=== PATIENT | female | born 1965 | race Caucasian/White ===

== ENCOUNTER 2016-09-19 13:43 | Emergency (ER) ==
[2016-09-19 14:15] LABS: URINE SOURCE CLEAN CATCH
[2016-09-19 14:55] LABS: BILIRUBIN URINE NEGATIVE (NEGATIVE); BLOOD URINE TRACE (NEGATIVE); CLARITY SL. CLOUDY (CLEAR); COLOR YELLOW; GLUCOSE URINE NEGATIVE (NEGATIVE); LEUKOCYTES URINE 2+ (NEGATIVE); NITRITE URINE NEGATIVE (NEGATIVE); PH URINE 6.5; PROTEIN URINE NEGATIVE (NEGATIVE); SP GRAVITY URINE 1.005; UROBILINOGEN URINE NORMAL
[2016-09-19 14:56] LABS: URINE CULTURE PL NEEDED? YES; URINE EPITHELIAL CELLS <10 /HPF (<10); URINE RBC <10 /HPF (<10)
[2016-09-19] MEDS ORDERED: NORFLEX IM ONE (15:49)
[2016-09-19] MEDS ORDERED: TORADOL IM ONE (15:49)
[2016-09-19] MEDS ORDERED: DILAUDID IM ONE (15:50)
--- NOTE | 2016-09-19 15:52 | PROVIDER DOCUMENTATION ---
HPI-Musculoskeletal Pain/Inj - GENERAL Chief Complaint: Back Pain Stated Complaint: FLANK PAIN Time Seen by Provider: 09/19/16 15:43 - HX OF PRESENT ILLNESS-MUSKULOSKELTAL Nature of Presenting Problem: 51 year old WF presents with low back pain for 10 days, onset after she was almost pulled to the ground by her dog. pt reports she twisted and has had the pain ever since. denies fall. pain has been getting worse since that time. pain radiates down both legs, numbness/ tingling to entire legs and feet since onset 10 days ago. pt has taken ibuprofen, flexeril with out relief. pt does not have a history of chronic back pain. Quality of Pain: reports: sharp, stabbing Severity in ED: moderate Onset/Duration: other (10 days ago) Timing: still present, constant, getting worse Modifying Factors: improves with: movement, palpation Any recent injury?: Yes Locality of Occurance: Home Similar Symptoms Previously?: No Recently seen or treated by another doctor?: No - BACK & NECK PAIN/INJURY Back/Neck Pain Location: reports: lumbar spine Back/Neck Pain Radiation: reports: Lower Legs, Feet. denies: headache, shoulders, arm(s), Buttocks, Upper Legs Context / Method of Injury: reports: twisted Associated Symptoms: reports: lower back pain, numbness in legs/feet, numbness in upper ext, tingling in legs/feet, tingling in upper ext, weakness in legs/ feet. denies: loss of bladder control, loss of bowel control, fever, muscle spasms, sensory/motor loss, weakness in upper ext Review of Systems - Adult - REVIEW OF SYSTEMS - ADULT Constitutional: reports: no symptoms reported. denies: chills, fever, fatique Eyes: reports: no symptoms reported. denies: discharge, blurred vision, double vision Ears, Nose, Mouth & Throat: reports: no symptoms reported. denies: ear discharge, ear pain, nose pain, loose teeth, throat pain, throat swelling Cardiovascular: reports: no symptoms reported. denies: chest pain, palpitations , syncope Respiratory: reports: no symptoms reported. denies: chronic cough, cough, shortness of breath, wheezing Gastrointestinal: reports: no symptoms reported. denies: abdominal pain, diarrhea, nausea, vomiting Genitourinary: reports: no symptoms reported. denies: dysuria, hematuria, urgency Musculoskeletal: reports: see HPI, back pain. denies: bone pain, joint pain, joint swelling, neck pain Integumentary: reports: no symptoms reported. denies: hives, itching Neurological: reports: see HPI, numbness (tingling to bilateral lower extremities). denies: ataxia, dizziness/vertigo, headache/migraines, loss of balance, paresthesia, seizure, slurred speech, syncope, tremors Psychiatric: reports: no symptoms reported Endocrine: reports: no symptoms reported Hematologic/Lymphatic: reports: no symptoms reported Allergic/Immunologic: reports: no symptoms reported All Other Systems: Reviewed and Negative Past History - Adult - PAST MEDICAL HISTORY-ADULT Review of Records: reports: Old Records Reviewed, Nursing Assessment Review, Medications Reviewed, Social history reviewed & non-contributory. Major Childhood Illnesses: reports: denies history Cardiovascular: reports: denies history Respiratory: reports: denies history Gastrointestinal: reports: GERD Obstetrical/Gynecological: reports: denies history Genitourinary: reports: denies history Musculoskeletal: reports: other (DJD) Neurological: reports: denies history Psychiatric: reports: depression Endocrine/Immune: reports: denies history Other Conditions: reports: denies history - PRIOR SURGERIES/PROCEDURES Surgical/Procedure History: reports: recent surgery - IMMUNIZATION STATUS Childhood Immunizations: UTD Flu Vaccine: UTD - FAMILY HISTORY Family History: reviewed, not pertinent - SOCIAL HISTORY Smoking: denies, non-smoker Substance Use: none/never Alcohol Use Frequency: never Physical Exam-Injury Related - Physical Exam-Injury Related Initial Vital Signs Reviewed: Yes General Appearance: appears well, alert, mild distress, moderate distress. negative: no apparent distress, severe distress, lethargic, slow to respond, obtunded, combative Eyes: pink conjunctivae Head, Ears, Nose, Mouth & Throat: normocephalic/atraumatic, moist mucous membranes, normal ENT inspection Neck: non-tender, full range of motion, supple, normal inspection. negative: C- spine tenderness, decresed ROM, limited range of motion, pain on movement, vertebral point tenderness Respiratory: chest non-tender, lungs clear, normal breath sounds, no pleuratic chest pain, no respiratory distress, no accessory muscle use Cardiovascular: normal peripheral pulses, regular rate, rhythm Peripheral Pulses: radial (R): 3+, radial (L): 3+, dorsalis-pedis (R): 3+, dorsalis-pedis (L): 3+ Abdominal Exam: normal bowel sounds, non tender, soft Female Genitalia/Pelvic Exam: deferred Rectal Exam: deferred Hemoccult Exam: deferred Lymphatic: no adenopathy Back Exam: normal inspection, no CVA tenderness, decreased range of motion, muscle spasm, vertebral tenderness (diffuse lumbar tenderness). negative: CVA tenderness, ecchymosis, kyphosis, lordosis, scoliosis, swelling Extremity: normal range of motion, non-tender, normal gait, normal inspection, no pedal edema, no calf tenderness, normal capillary refill Integumentary: normal color, warm/dry Neurologic: grossly normal, no motor/sensory deficits. negative: focal weakness , motor weakness, sensory deficit - Glascow Coma Score Best Eye Response ([place]): (4) open spontaneously Best Verbal Response ([place]): (5) oriented Best Motor Response ([place]): (6) obeys commands Jorge Luis Total: 15 Progress - PLAN OF CARE/RESULTS Progress/Plan/Lab Results: Laboratory Tests 09/19/16 14:00 Urine Source CLEAN CATCH Urine Color YELLOW Urine Clarity SL. CLOUDY A Urine pH 6.5 Ur Specific [place] 1.005 Urine Protein NEGATIVE Urine Ketones NEGATIVE Urine Blood TRACE Urine Nitrite NEGATIVE Urine Bilirubin NEGATIVE Urine Urobilinogen NORMAL Urine Microscopic RBC <10 Urine WBC 2+ A Urine Microscopic WBC 10-20 A Ur Epithelial Cells <10 Urine Bacteria 2+ Urine Glucose NEGATIVE Vital Signs - 24 hr 09/19/16 09/19/16 13:54 15:52 Temperature 97.9 F Pulse Rate 82 79 Respiratory 16 18 Rate Blood Pressure 128/76 131/81 O2 Sat by Pulse 99 96 Oximetry Reviewed radiology with Dr. Montiel, aggrees with plan of care and treatment. - CT/MRI 1 CT Study: Lumbar Spine Impression: Abnormal (small bulging disks, no fracture, spinal stenosis or disk herniation. per Dr. Wise) Departure - Departure Time of Disposition Order: 18:35 DIAGNOSIS: Low back pain Qualifiers: Chronicity: acute Back pain laterality: midline Sciatica presence: unspecified whether sciatica present Qualified Code(s): M54.5 - Low back pain Disposition: HOME 01 Certified Medical Emergency: Emergent Condition: Stable Additional Instructions: Follow up with your primary care doctor for a referral to MRI. ED Follow Up Instructions: You have been treated by a care provider in the Emergency Department. These instructions are being provided to you so you can have an understanding of how to care for yourself upon discharge. Upon discharge from the Emergency Department, you are responsible for making arrangements for follow-up care by a physician of your choice. Take all prescribed medications as directed. Return to the Emergency Department immediately for any new or worsening symptoms. You may call the Physician Referral phone number at [phone] to obtain a list of Physicians who are taking new patients. Prescriptions: Hydrocodone/APAP 7.5 mg/325 mg [[place]-7.5] 1 each PO Q6H PRN PRN #7 tablet PRN Reason: Pain Orphenadrine [Norflex] 100 mg PO BID #10 tablet Famotidine [Pepcid] 20 mg PO DAILY #20 tablet Ketorolac [Toradol] 10 mg PO Q6H PRN PRN #10 tablet PRN Reason: back pain Referrals: None,PCP [Primary Care Provider] - Forms: Return to School/Parent Work Instructions: Acetaminophen; Hydrocodone tablets or capsules, Famotidine tablets or gelcaps, Back Pain, Adult, Ketorolac tablets, Orphenadrine tablets Attestation - Physician/ LLOYD Attestation Patient care was provided by Advanced Practice Provider:: Yes Advanced Practice Provider:: Dieter Chaudhry Advanced Practice Provider documentation review:: The Mid-level provider documentation, treatment plan and medical decision making was reviewed by the physician who agrees with all treatment and medical decision making by the MLP.
[2016-09-19 15:53] VITALS: BP 131/81
--- NOTE | 2016-09-19 18:15 | Diag Imaging Result Document ---
PROCEDURE NAME: LUMBAR SPINE W/O CONTRAST - 09/19/2016 STUDY: CT lumbar spine without contrast. PROTOCOL: Dose reduction protocol. There is good alignment to the lumbar spine. No compressed vertebrae. No other fracture. No subluxation. There is only mild bulging to the lower lumbar disks with only mild spinal stenosis. No disk herniation. No aortic aneurysm. No renal stones. No hydronephrosis. IMPRESSION: 1. No fracture. 2. Small bulging disks, but no disk herniation or spinal stenosis. If clinical suspicion persists, then an MRI is recommended. A preliminary report was given at 5:21 p.m.
== END 2016-09-19 18:50 | disposition home or self-care (01) ==
LOC: P.ED 13:43
DX: M54.5 Low back pain (principal); X58.XXXA Exposure to other specified factors, initial encounter; R20.0 Anesthesia of skin; R20.2 Paresthesia of skin; R53.1 Weakness; K21.9 Gastro-esophageal reflux disease without esophagitis; F32.9 Major depressive disorder, single episode, unspecified; M51.26 Other intervertebral disc displacement, lumbar region; Z79.899 Other long term (current) drug therapy
CPT/HCPCS: 72131; 81001; 87077; 87088; 87186; 96372; J1170; J1885; J2360